=== PATIENT | female | born 1940 | race African-American/Black ===

== ENCOUNTER 2022-07-01 08:42 | Observation (INO) ==
[2022-07-01 09:38] LABS: Basophils % 0.3 % (0.0-0.8); Eosinophils # 0.1 10*3/uL (0.0-0.87); Eosinophils % 0.7 % (0.00-10.9); Hematocrit 43.4 VOL% (35.7-47.0); Hemoglobin 13.6 GM/DL (12.0-16.0); Immature Granulocytes % 0.6 %; Immature Granulocytes Absolute 0.05 #; Lymphocytes % 11.6 % (21.3-54.2); Mean Corpuscular HGB Conc 31.3 GM/DL (32-36); Mean Corpuscular Volume 86.5 FL (87-102); Mean Platelet Volume 12.3 FL (9.6-12.0); Monocytes # 0.4 10*3/uL (0.11-0.8); Monocytes % 4.3 % (1.7-12.7); Neutrophils % 82.5 % (38.7-73.9); Platelet Count 179 T/CUMM (130-400); Red Blood Count 5.02 MC/CUMM (3.8-5.5); Red Cell Distribution Width 13.2 % (9.3-17.3); White Blood Count 8.93 T/CUMM (4-12)
[2022-07-01 09:40] LABS: RBC,Urine 1 /HPF (0-4); Squamous Epithelial Cell,Urine Occasional /HPF (0-10)
[2022-07-01 09:41] LABS: Bilirubin,Urine Negative (Negative); Blood, Urine Moderate mg/dL (Negative); Glucose,Urine (UA) 100 mg/dL (Negative); Ketones,Urine Negative (Negative); Nitrite,Urine Negative (Negative); Protein,Urine Negative (Negative); Urine Appearance Clear (Clear); Urine Color Yellow (Yellow); Urine Specific Gravity 1.015 (1.001-1.035); Urine Urobilinogen 0.2 eU/dL (<2.0); Urine pH 6.5 (4.5-8.0)
[2022-07-01 09:43] LABS: Barbiturates Screen,Urine Negative (Negative); Benzodiazepines Screen,Urine Negative (Negative); Cannabinoid Screen,Urine Negative (Negative); Opiate Screen,Urine Negative (Negative); Phencyclidine Screen,Urine Negative (Negative)
[2022-07-01 09:52] LABS: PT Patient Result 11.4 SECS (10.1-12.1); Partial Thromboplastin Time 28.3 SECS (23.7-32.9)
[2022-07-01 09:56] LABS: Albumin 3.8 G/DL (3.4-5.0); Bilirubin,Total 0.5 MG/DL (0.20-1.00); Calcium 9.5 MG/DL (8.5-10.1); Osmolality,Calculated 289.7 MOS/KG (273-304); Potassium 3.3 MMOL/L (3.5-5.1); Total Protein 7.9 G/DL (6.4-8.2)
[2022-07-01] MEDS ORDERED: GLUCAGON 1 MG VIAL IM PRN (12:40)
[2022-07-01] MEDS ORDERED: ONDANSETRON 4 MG/2 ML VIAL IV PRN (12:40)
[2022-07-01] MEDS ORDERED: LINACLOTIDE 145 MCG CAPSULE PO PRN (12:42)
[2022-07-01] MEDS ORDERED: hydrALAZINE 20 MG/1 ML VIAL IV PRN (12:43)
[2022-07-01] MEDS ORDERED: DEXTROSE 10% 250 ML BAG IV PRN (12:47)
[2022-07-01] MEDS: DEXTROSE 5% NACL 0.45% 1,000 ML IV SCH (13:02)
[2022-07-01] MEDS ORDERED: POTASSIUM CHLORIDE 20 MEQ TABLET PO STA (13:08)
[2022-07-01] MEDS: INSULIN LISPRO 100 UNIT/ML SUBCUT SCH ×2 (13:54→23:24)
[2022-07-01] MEDS: HEPARIN 5,000 UNIT/1 ML VIAL SUBCUT SCH (17:13)
[2022-07-01] MEDS: gemfibroziL 600 MG TABLET PO SCH (21:35)
[2022-07-01] MEDS: cloNIDine 0.1 MG TABLET PO SCH (21:35)
[2022-07-02] MEDS: HEPARIN 5,000 UNIT/1 ML VIAL SUBCUT SCH ×3 (01:13→17:06)
[2022-07-02] MEDS: DEXTROSE 5% NACL 0.45% 1,000 ML IV SCH ×3 (01:25→23:05)
[2022-07-02] MEDS: INSULIN LISPRO 100 UNIT/ML SUBCUT SCH ×3 (03:44→12:19)
[2022-07-02 05:20] LABS: Basophils % 0.3 % (0.0-0.8); Eosinophils # 0.1 10*3/uL (0.0-0.87); Hematocrit 33.5 VOL% (35.7-47.0); Hemoglobin 10.6 GM/DL (12.0-16.0); Immature Granulocytes % 0.3 %; Immature Granulocytes Absolute 0.02 #; Lymphocytes # 1.4 10*3/uL (1.4-4.0); Lymphocytes % 18.3 % (21.3-54.2); Mean Corpuscular HGB Conc 31.6 GM/DL (32-36); Mean Corpuscular Volume 85.5 FL (87-102); Mean Platelet Volume 12.6 FL (9.6-12.0); Monocytes # 0.7 10*3/uL (0.11-0.8); Monocytes % 8.8 % (1.7-12.7); Neutrophils % 71.3 % (38.7-73.9); Platelet Count 164 T/CUMM (130-400); Red Blood Count 3.92 MC/CUMM (3.8-5.5); Red Cell Distribution Width 13.2 % (9.3-17.3)
[2022-07-02 05:34] LABS: Calcium 8.5 MG/DL (8.5-10.1); Osmolality,Calculated 295.8 MOS/KG (273-304)
[2022-07-02 05:42] LABS: Risk Ratio 2.65; VLDL Cholesterol 8.6 MG/DL
[2022-07-02] MEDS ORDERED: MAGNESIUM SULF RIDER 2 GM/50 ML PREMIX IV ONE (08:00)
[2022-07-02] MEDS ORDERED: atenoloL 25 MG TABLET PO SCH (09:00)
[2022-07-02] MEDS: LOSARTAN 50 MG TABLET PO SCH (09:32)
[2022-07-02] MEDS: gemfibroziL 600 MG TABLET PO SCH ×2 (09:32→20:07)
[2022-07-02] MEDS: cloNIDine 0.1 MG TABLET PO SCH ×2 (09:33→20:07)
[2022-07-02] MEDS: ATORVASTATIN 40 MG TABLET PO SCH (09:33)
[2022-07-02] MEDS: hydroCHLOROthiazide 12.5 MG CAPSULE PO SCH (09:33)
[2022-07-02] MEDS: POTASSIUM CHLORIDE 20 MEQ TABLET PO SCH ×2 (09:34→13:25)
[2022-07-02] MEDS: CHOLECALCIFEROL 1,000 UNIT TABLET PO SCH (09:35)
[2022-07-02] MEDS: FLUoxetine 10 MG CAPSULE PO SCH (09:39)
[2022-07-02] MEDS: DORZOLAMIDE/TIMOLOL OPH SOLN 10 ML BOTTLE BOTH EYES SCH ×2 (09:40→20:08)
[2022-07-02] MEDS: BRIMONIDINE 0.1% OPH SOLN 5 ML BOTTLE BOTH EYES SCH ×2 (09:40→20:08)
[2022-07-02] MEDS ORDERED: DEXTROSE 50% 25 GM/50 ML VIAL IV PRN (10:00)
[2022-07-02] MEDS ORDERED: POTASSIUM CHLORIDE 20 MEQ TABLET PO ONE (13:25)
[2022-07-02] MEDS ORDERED: INSULIN GLARGINE 100 UNIT/ML SUBCUT SCH (21:00)
[2022-07-03] MEDS: HEPARIN 5,000 UNIT/1 ML VIAL SUBCUT SCH ×2 (00:21→08:54)
[2022-07-03 05:14] LABS: Basophils % 0.5 % (0.0-0.8); Eosinophils # 0.2 10*3/uL (0.0-0.87); Eosinophils % 3.1 % (0.00-10.9); Hematocrit 32.3 VOL% (35.7-47.0); Hemoglobin 10.2 GM/DL (12.0-16.0); Immature Granulocytes % 0.2 %; Immature Granulocytes Absolute 0.01 #; Lymphocytes # 1.2 10*3/uL (1.4-4.0); Lymphocytes % 18.9 % (21.3-54.2); Mean Corpuscular HGB Conc 31.6 GM/DL (32-36); Mean Corpuscular Volume 87.3 FL (87-102); Mean Platelet Volume 12.6 FL (9.6-12.0); Monocytes # 0.7 10*3/uL (0.11-0.8); Monocytes % 11.8 % (1.7-12.7); Neutrophils % 65.5 % (38.7-73.9); Platelet Count 157 T/CUMM (130-400); Red Cell Distribution Width 13.2 % (9.3-17.3); White Blood Count 6.19 T/CUMM (4-12)
[2022-07-03 06:28] LABS: Calcium 8.6 MG/DL (8.5-10.1); Potassium 3.7 MMOL/L (3.5-5.1)
[2022-07-03 08:37] VITALS: BP 189/76
[2022-07-03] MEDS: gemfibroziL 600 MG TABLET PO SCH (08:54)
[2022-07-03] MEDS: BRIMONIDINE 0.1% OPH SOLN 5 ML BOTTLE BOTH EYES SCH (08:54)
[2022-07-03] MEDS: DORZOLAMIDE/TIMOLOL OPH SOLN 10 ML BOTTLE BOTH EYES SCH (08:55)
[2022-07-03] MEDS: ATORVASTATIN 40 MG TABLET PO SCH (08:55)
[2022-07-03] MEDS: cloNIDine 0.1 MG TABLET PO SCH (08:55)
[2022-07-03] MEDS: FLUoxetine 10 MG CAPSULE PO SCH (08:55)
[2022-07-03] MEDS: hydroCHLOROthiazide 12.5 MG CAPSULE PO SCH (08:55)
[2022-07-03] MEDS: CHOLECALCIFEROL 1,000 UNIT TABLET PO SCH (08:55)
[2022-07-03] MEDS: LOSARTAN 50 MG TABLET PO SCH (08:55)
== END 2022-07-03 11:30 | disposition home or self-care (01) ==
LOC: N.ED 08:42 → N.3E 08:42 → SUATTDRO 12:09 → N.3E 15:17
PROVIDERS: ADMIT Internal Medicine; ATTEND Internal Medicine